=== PATIENT | male | born 1965 | race Caucasian/White ===

== ENCOUNTER → 2017-01-21 | Outpatient (REF) | payer BC | LOC: M LAB REF 12:24 | PROVIDERS: ATTEND Internal Medicine | DX: E29.1 Testicular hypofunction (principal) ==

== ENCOUNTER → 2017-02-15 | Outpatient (REF) | payer BC | LOC: M LAB REF 13:33 | PROVIDERS: ATTEND Internal Medicine | DX: E29.1 Testicular hypofunction (principal) ==

== ENCOUNTER → 2017-08-09 | Outpatient (REF) | payer BC ==
[2017-08-10 14:21] LABS: TESTOSTERONE FREE (DIRECT) 14.1 pg/mL (6.8-21.5)
== END ==
LOC: M LAB REF 11:57
DX: E29.1 Testicular hypofunction (principal)
CPT/HCPCS: 84403

== ENCOUNTER → 2018-02-14 | Outpatient (REF) | payer BC ==
[2018-02-16 00:09] LABS: TESTOSTERONE FREE (DIRECT) 14.8 pg/mL (7.2-24.0)
== END ==
LOC: M LAB REF 13:34
DX: E29.1 Testicular hypofunction (principal)
CPT/HCPCS: 84403

== ENCOUNTER → 2018-09-12 | Outpatient (REF) | payer BC ==
[2018-09-14 00:06] LABS: TESTOSTERONE FREE (DIRECT) 9.8 pg/mL (7.2-24.0)
== END ==
LOC: M LAB REF 12:15
PROVIDERS: ATTEND Internal Medicine
DX: E29.1 Testicular hypofunction (principal)

== ENCOUNTER 2018-11-20 11:38 | Day surgery (SDC) | payer BC ==
[~2018-11-20] VITALS: Ht 182.9 cm; Wt 124.9 kg
[~2018-11-20 11:38] MED LIST: ASPI81TA85 PO; CALC500T52 PO; CRAN450T4 PO; CVS2500C PO; GEMF600T5 PO; IBUP-1022 PO; LIDOCAINE 2% INJ 100 MG/5 ML SDV (FOR ANES.) As Ordered ONE; METF750T PO; NO ITAB PO; NS 1,000 ML IV SCH; OMEP-218 PO; PROA1AER2 INH; PROPOFOL 200 MG/20 ML VIAL As Ordered ONE; SIMV40TA2 PO; TEST200I14 IM; VITA500C24 PO
--- NOTE | 2018-11-20 12:48 | ROOR ---
Patient Name: Nitin Lemos Procedure Date: 11/20/2018 12:19 PM Date of : 1965 Age: 53 Room: [facility] Gender: Male Note Status: Finalized Procedure: Total Colonoscopy to Cecum Indications: Positive Cologuard test Providers: Vishal Zambrano MD Referring MD: MIKHAIL TEJADA JR, MD Requesting Provider: Medicines: Monitored Anesthesia Care Complications: No immediate complications. Procedure: Pre-Anesthesia Assessment: - The heart rate, respiratory rate, oxygen saturations, blood pressure, adequacy of pulmonary ventilation, and response to care were monitored throughout the procedure. The Colonoscope was introduced through the anus and advanced to the cecum, identified by appendiceal orifice and ileocecal valve. The colonoscopy was performed without difficulty. The patient tolerated the procedure well. The quality of the bowel preparation was good. Findings: The perianal and digital rectal examinations were normal. No other significant abnormalities were identified in a careful examination of the remainder of the colon. The exam was otherwise without abnormality on direct and retroflexion views. Impression: - The examination was otherwise normal on direct and retroflexion views. - No specimens collected. - The exam was otherwise normal to the cecum. Recommendation: - Patient has a contact number available for emergencies. The signs and symptoms of potential delayed complications were discussed with the patient. Return to normal activities tomorrow. Written discharge instructions were provided to the patient. - High fiber diet. - Discharge patient to home. - Continue present medications. - Repeat colonoscopy in 10 years for screening purposes. - Return to referring physician. - The findings and recommendations were discussed with the patient's family. Vishal Zambrano MD Vishal Zambrano MD 11/20/2018 12:48:07 PM Electronically signed by Vishal Zambrano MD Number of Addenda: 0 Note Initiated On: 11/20/2018 12:19 PM Estimated Blood Loss: Estimated blood loss: none.
--- NOTE | 2018-11-20 12:50 | ROOR ---
Patient Name: Nitin Lemos Procedure Date: 11/20/2018 12:18 PM Date of : 1965 Age: 53 Room: [facility] Gender: Male Note Status: Finalized Procedure: Upper GI endoscopy Indications: Heartburn, Exclusion of Mendoza's esophagus Providers: Vishal Zambrano MD Referring MD: MIKHAIL TEJADA JR, MD Requesting Provider: Medicines: Monitored Anesthesia Care Complications: No immediate complications. Procedure: Pre-Anesthesia Assessment: - The heart rate, respiratory rate, oxygen saturations, blood pressure, adequacy of pulmonary ventilation, and response to care were monitored throughout the procedure. The Endoscope was introduced through the mouth, and advanced to the second part of duodenum. The upper GI endoscopy was accomplished without difficulty. The patient tolerated the procedure well. Findings: The Z-line was variable and was found 40 cm from the incisors. Multiple biopsies were obtained with cold forceps for evaluation to rule out Mendoza's Esophagus randomly at the gastroesophageal junction. A small hiatal hernia was present. No other significant abnormalities were identified in a careful examination of the stomach. The exam of the duodenum was otherwise normal. Impression: - Z-line variable, 40 cm from the incisors. - Small hiatal hernia. - Multiple biopsies were obtained at the gastroesophageal junction. - The examination was otherwise normal. Recommendation: - Patient has a contact number available for emergencies. The signs and symptoms of potential delayed complications were discussed with the patient. Return to normal activities tomorrow. Written discharge instructions were provided to the patient. - High fiber diet. - Discharge patient to home. - Continue present medications. - Return to referring physician. - The findings and recommendations were discussed with the patient's family. Vishal Zambrano MD Vishal Zambrano MD 11/20/2018 12:50:20 PM Electronically signed by Vishal Zambrano MD Number of Addenda: 0 Note Initiated On: 11/20/2018 12:18 PM Estimated Blood Loss: Estimated blood loss: none.
[2018-11-20 13:10] VITALS: BP 149/86
== END 2018-11-20 13:22 | disposition home or self-care (01) ==
LOC: M OPP 11:38
PROVIDERS: ATTEND Internal Medicine Gastroenterology
DX: R19.5 Other fecal abnormalities (principal); K22.8 Other specified diseases of esophagus; K44.9 Diaphragmatic hernia without obstruction or gangrene; R12 Heartburn

== ENCOUNTER → 2019-01-20 | Outpatient (CLI) | payer BC ==
[~2019-01-20] MED LIST changes: -LIDOCAINE 2% INJ 100 MG/5 ML SDV (FOR ANES.) As Ordered ONE; -NS 1,000 ML IV SCH; -PROPOFOL 200 MG/20 ML VIAL As Ordered ONE
--- NOTE | 2019-01-20 14:22 | REP ---
LEFT WRIST, FOUR VIEWS: WRIST: There is no evidence of an acute fracture, dislocation or intrinsic bone disease. IMPRESSION: No fracture or dislocation. Electronically Signed by Robert Manrique MD 01/20/2019 07:39 P
== END ==
LOC: M WUC 13:05
PROVIDERS: ATTEND Physician Assistant
DX: S60.212A Contusion of left wrist, initial encounter (principal); W18.30XA Fall on same level, unspecified, initial encounter; Y92.009 Unspecified place in unspecified non-institutional (private) residence as the place of occurrence of the external cause

== ENCOUNTER → 2019-04-10 | Outpatient (REF) | payer BC ==
[~2019-04-10] MED LIST changes: -METF750T PO; +METF750T36 PO
[2019-04-12 00:06] LABS: TESTOSTERONE FREE (DIRECT) 15.8 pg/mL (7.2-24.0)
== END ==
LOC: M LAB REF 12:45
PROVIDERS: ATTEND Internal Medicine
DX: E29.1 Testicular hypofunction (principal)

== ENCOUNTER 2019-06-12 09:01 | Day surgery (SDC) | payer BC ==
[~2019-06-12] VITALS: Ht 182.9 cm; Wt 121.3 kg
[~2019-06-12 09:01] MED LIST changes: +LIDOCAINE 1% MDV 20ML VIAL SQ PRN; +LR 1,000 ML IV ONE; +ceFAZolin SOD 1 GM in D5W MINI-BAG PLUS 50 ML IV ONE
[2019-06-12] MEDS ORDERED: dexameTHASONE 4 MG/ML 1ML VIAL (J1100) As Ordered ONE (09:12)
[2019-06-12] MEDS ORDERED: KETOROLAC 60 MG/2 ML VIAL (J1885) As Ordered ONE (09:12)
[2019-06-12] MEDS ORDERED: ONDANSETRON 4MG/2ML VIAL (J2405) As Ordered ONE (09:12)
[2019-06-12] MEDS ORDERED: LIDOCAINE 2% INJ 100 MG/5 ML SDV (FOR ANES.) As Ordered ONE (09:13)
[2019-06-12] MEDS ORDERED: PROPOFOL 200 MG/20 ML VIAL As Ordered ONE (09:13)
[2019-06-12] MEDS ORDERED: ROCURONIUM BROMIDE 50 MG/5 ML VIAL As Ordered ONE (09:13)
[2019-06-12] MEDS ORDERED: QC A650T3 PO (09:23)
[2019-06-12] MEDS ORDERED: fentaNYL 250 MCG/5 ML INJECTION (J3010) As Ordered ONE (10:58)
[2019-06-12] MEDS ORDERED: BUPIVACAINE LIPOSOME/PF 1.3% 20ML VIAL (13.3MG/ML)(EXPAREL)(C9290 PER1MG) As Ordered ONE (10:58)
[2019-06-12] MEDS ORDERED: BUPIVACAINE HCL 0.25% 10 ML VIAL As Ordered ONE (10:58)
[2019-06-12] MEDS ORDERED: MIDAZOLAM INJ 2 MG/2 ML VIAL (J2250) As Ordered ONE (10:59)
[2019-06-12] MEDS ORDERED: SUGAMMADEX SODIUM 500 MG/5 ML VIAL (BRIDION) As Ordered ONE (11:57)
[2019-06-12] MEDS ORDERED: SEVOFLURANE INHAL SOLN 250 ML BTL As Ordered ONE (12:05)
[2019-06-12] MEDS ORDERED: LR 1,000 ML IV SCH ×2 (13:00→14:00)
[2019-06-12] MEDS ORDERED: ONDANSETRON 4MG/2ML VIAL (J2405) IV PRN ×2 (13:00→14:00)
[2019-06-12] MEDS ORDERED: MORPHINE 10 MG/ML 1ML VIAL (J2270) IV PRN (13:00)
[2019-06-12] MEDS ORDERED: PERCOCET 5MG/325MG TAB PO PRN (13:00)
[2019-06-12] MEDS ORDERED: fentaNYL 100 MCG/2 ML INJECTION (J3010) IV PRN (13:00)
[2019-06-12] MEDS ORDERED: METOCLOPRAMIDE INJ 10MG/2ML VIAL (J2765) IV PRN (13:00)
[2019-06-12 13:50] VITALS: BP 141/85
[2019-06-12] MEDS ORDERED: NORCO, ANEXSIA 5/325MG TABLET (HYDROcodone/ACETAMINOPHEN) PO PRN (14:00)
== END 2019-06-12 13:59 | disposition home or self-care (01) ==
LOC: M SDC 09:01
PROVIDERS: ATTEND Surgery
DX: K42.9 Umbilical hernia without obstruction or gangrene (principal); E11.9 Type 2 diabetes mellitus without complications; E78.5 Hyperlipidemia, unspecified; K21.9 Gastro-esophageal reflux disease without esophagitis; G43.909 Migraine, unspecified, not intractable, without status migrainosus; J45.909 Unspecified asthma, uncomplicated; Z79.899 Other long term (current) drug therapy; Z79.82 Long term (current) use of aspirin
CPT/HCPCS: 49585; 88302; C1781; C9290; J0690; J1100; J1885; J2250; J2405; J3010

== ENCOUNTER → 2019-11-02 | Outpatient (REF) | payer BC ==
[~2019-11-02] MED LIST changes: -LIDOCAINE 1% MDV 20ML VIAL SQ PRN; -LR 1,000 ML IV ONE; +QC A650T3 PO; -SIMV40TA2 PO; +SIMV40TA20 PO; -ceFAZolin SOD 1 GM in D5W MINI-BAG PLUS 50 ML IV ONE
[2019-11-03 14:07] LABS: TESTOSTERONE FREE (DIRECT) 15.4 pg/mL (7.2-24.0)
== END ==
LOC: M LAB REF 12:23
PROVIDERS: ATTEND Internal Medicine
DX: Z01.810 Encounter for preprocedural cardiovascular examination (principal)

== ENCOUNTER → 2020-05-28 | Outpatient (REF) | payer BC ==
[~2020-05-28] MED LIST changes: -ASPI81TA85 PO; +ASPI81TA86 PO
[2020-05-29 20:08] LABS: TESTOSTERONE FREE (DIRECT) > 50.0 pg/mL (7.2-24.0)
== END ==
LOC: M LAB REF 11:31
PROVIDERS: ATTEND Internal Medicine
DX: E29.1 Testicular hypofunction (principal)

== ENCOUNTER → 2021-07-09 | Outpatient (REF) | payer BC ==
[~2021-07-09] MED LIST changes: +OMEP-173 PO; -OMEP-218 PO
[2021-07-09 14:30] LABS: PTH INTACT 81.3 PG/ML (18.5-88.0)
[2021-07-13 10:48] LABS: ALBUMIN 4.64 GM/DL (3.29-5.55); ALBUMIN % 66.3 % (55.8-66.1); ALPHA-1-GLOBULINS 0.28 GM/DL (0.17-0.41); ALPHA-2-GLOBULINS 0.69 GM/DL (0.42-0.99); ALPHA-2-GLOBULINS % 9.9 % (7.1-11.8); BETA-1-GLOBULINS % 5.7 % (4.7-7.2); BETA-2-GLOBULINS % 4.3 % (3.2-6.5); GAMMA GLOBULIN % 9.8 % (11.1-18.8); GAMMA GLOBULINS 0.69 GM/DL (0.65-1.58)
== END ==
LOC: M LAB REF 12:44
PROVIDERS: ATTEND Internal Medicine
DX: E83.52 Hypercalcemia (principal)

== ENCOUNTER → 2021-08-12 | Outpatient (REF) | payer BC ==
[~2021-08-12] MED LIST changes: -OMEP-173 PO; +OMEP-218 PO
== END ==
LOC: M SMT PRO 09:18
PROVIDERS: ATTEND Urology
DX: R97.20 Elevated prostate specific antigen [PSA] (principal)

== ENCOUNTER → 2023-07-12 | Outpatient (CLI) | payer BC ==
[~2023-07-12] MED LIST changes: +OMEP-173 PO; -OMEP-218 PO
== END ==
LOC: M LAB 15:49
PROVIDERS: ATTEND Urology
DX: R97.20 Elevated prostate specific antigen [PSA] (principal)

== ENCOUNTER → 2023-08-23 | Outpatient (REF) | payer BC | LOC: M LAB REF 13:16 | PROVIDERS: ATTEND Internal Medicine | DX: E83.52 Hypercalcemia (principal) ==

== ENCOUNTER → 2024-01-18 | Outpatient (CLI) | payer BC | LOC: M LAB 16:32 | PROVIDERS: ATTEND Urology | DX: R97.20 Elevated prostate specific antigen [PSA] (principal) ==

== ENCOUNTER 2025-05-27 07:55 | Day surgery (SDC) | payer BC ==
[~2025-05-27] VITALS: Ht 185.4 cm; Wt 112.5 kg
[~2025-05-27 07:55] MED LIST changes: +ASPI81CH33 PO; +CINN500C15 PO; -IBUP-1022 PO; +IBUP600T42 PO; +JARD1TAB PO; +LOPI600T PO; +LR 1,000 ML IV SCH; +MIDAZOLAM INJ 2 MG/2 ML VIAL As Ordered ONE
[2025-05-27] MEDS: CYCLOPENTOLATE 1% OPHTH SOLN 2 ML BTL OD SCH (08:12)
[2025-05-27] MEDS: TETRACAINE 0.5% OPHTH SOLN 4ML OD SCH (08:12)
[2025-05-27] MEDS: FLURBIPROFEN 0.03% OPHTH SOLN 2.5 ML OD SCH (08:12)
[2025-05-27] MEDS: PHENYLEPHRINE 2.5% OPHTH SOL 2ML OD SCH (08:12)
[2025-05-27] MEDS: CEFUROXIME 1 MG/0.1 ML INTRACAMERAL INJ As Ordered ONE (08:55)
[2025-05-27] MEDS: LIDOCAINE 1% SDV 5 ML VIAL As Ordered ONE (08:55)
[2025-05-27 09:15] VITALS: BP 123/73; TEMP 98.1; O2SAT 97
== END 2025-05-27 09:29 | disposition home or self-care (01) ==
LOC: M SDC 07:55
PROVIDERS: ATTEND Ophthalmology
DX: E11.36 Type 2 diabetes mellitus with diabetic cataract (principal); H25.11 Age-related nuclear cataract, right eye; J45.909 Unspecified asthma, uncomplicated; E78.00 Pure hypercholesterolemia, unspecified; K21.9 Gastro-esophageal reflux disease without esophagitis; Z79.899 Other long term (current) drug therapy; Z79.84 Long term (current) use of oral hypoglycemic drugs; Z79.82 Long term (current) use of aspirin; Z79.85 Long-term (current) use of injectable non-insulin antidiabetic drugs
CPT/HCPCS: 66984; J0697; J2250; J3010; V2632